=== PATIENT | female | born 1960 | race African-American/Black ===

== ENCOUNTER → 2021-07-02 | Outpatient (CLI) | payer OTHER ==
[2020-11-29 09:13] VITALS: BP 100/70
--- NOTE | 2021-07-02 17:42 | RAD ---
Exam: XR HAND_RIGHT 2 VIEWS History: Right hand pain. Comparison: 10/24/2020 Findings: Decreased osseous mineralization. No fracture or dislocation. Minimal degenerative changes of the int erphalangeal and metatarsophalangeal joints. Mild degenerative changes of the carpus. No aggressive o sseous erosive process. No focal soft tissue swelling. Impression: 1. Mild degenerative changes without acute osseous abnormality in the right hand. Electronically signed by: Hill Salgado MD (07/02/2021 5:40 PM) [id number]
== END ==
LOC: RAD 11:48
PROVIDERS: ATTEND Orthopaedic Surgery
DX: M19.041 Primary osteoarthritis, right hand (principal)
CPT/HCPCS: 73120